=== PATIENT | male | born 1970 | race Caucasian/White ===

== ENCOUNTER 2018-04-15 09:59 | Emergency (ER) | payer OTHER ==
[~2018-04-15] VITALS: Ht 165.1 cm; Wt 80.7 kg
--- NOTE | 2018-04-15 10:52 | ED GI/GU/ABDOMINAL COMPLAINT ---
History of Present Illness General Chief Complaint: Abdominal Pain/Flank Pain Stated Complaint: ABD PAIN, X 3 DAYS. Source: patient, family Exam Limitations: no limitations Vital Signs & Intake/Output Vital Signs & Intake/Output Vital Signs Date Time Temp Pulse Resp B/P B/P Pulse O2 O2 Flow FiO2 Mean Ox Delivery Rate 04/15 1247 97.8 70 20 125/76 100 Room Air 04/15 1020 96.8 73 20 141/95 98 Room Air Allergies Coded Allergies: No Known Allergies (04/15/18) Triage Note: PT TO ED C/O LLQ PAIN X 3 DAYS. STATES IT IS PINCHING IN NATURE, COMES AND GOES. HAD NORMAL BM THIS AM. DENIES N/V/D, DENIES S/S. Triage Nurses Notes Reviewed? yes HPI: Patient presents with intermittent left lower quadrant sharp pain that started 4 days ago. The pain increases with any movement or bending. There is no radiation. At its worst the pain is 7 out of 10. There is no anorexia. There is no nausea vomiting constipation or diarrhea. There is no dysuria or hematuria. There are no fevers or chills. Past History Travel History Traveled to [place] past 21 day No Medical History Any Pertinent Medical History? see below for history Cardiovascular: hypertension Surgical History Surgical History: non-contributory Psychosocial History What is your primary language Hungarian Tobacco Use: Never used ETOH Use: denies use Illicit Drug Use: denies illicit drug use Family History Hx Contributory? No Review of Systems Review of Systems Constitutional: Reports: no symptoms. EENTM: Reports: no symptoms. Respiratory: Reports: no symptoms. Cardiovascular: Reports: no symptoms. GI: Reports: see HPI, abdominal pain. Genitourinary: Reports: no symptoms. Musculoskeletal: Reports: no symptoms. Skin: Reports: no symptoms. Neurological/Psychological: Reports: no symptoms. Hematologic/Endocrine: Reports: no symptoms. Immunologic/Allergic: Reports: no symptoms. All Other Systems: Reviewed and Negative Physical Exam Physical Exam General Appearance: well developed/nourished, alert, awake, mild distress Head: atraumatic, normal appearance Eyes: Bilateral: PERRL, EOMI. Ears, Nose, Throat, Mouth: hearing grossly normal, moist mucous membrane Neck: normal inspection, supple, full range of motion Respiratory: normal breath sounds, chest non-tender, no respiratory distress, lungs clear Cardiovascular: regular rate/rhythm, normal peripheral pulses Gastrointestinal: normal bowel sounds, soft, no organomegaly, tenderness (LLQ), NO REBOUND OR GUARDING Back: normal inspection, normal range of motion Extremities: normal range of motion Neurologic/Psych: no motor/sensory deficits, awake, alert, oriented x 3, normal gait, normal mood/affect Skin: intact, normal color, warm/dry Core Measures ACS in differential dx? No Sepsis Present: No Sepsis Focused Exam Completed? No Progress Differential Diagnosis: diverticulitis, MUSCLE STRAIN Plan of Care: Orders Procedure Date/time Status URINALYSIS 04/15 1006 Complete TROPONIN LEVEL 04/15 1006 Complete LIPASE 04/15 1006 Complete COMPREHENSIVE METABOLIC PANEL 04/15 1006 Complete CBC WITHOUT DIFFERENTIAL 04/15 1006 Complete AMYLASE 04/15 1006 Complete Laboratory Tests 04/15/18 1045: Anion Gap 7, Estimated GFR > 60, BUN/Creatinine Ratio 18.9, Glucose 88, Calcium 9.2, Total Bilirubin 0.6, AST 27, ALT 29, Alkaline Phosphatase 52, Troponin I < 0.01, Total Protein 7.5, Albumin 4.3, Globulin 3.2, Albumin/Globulin Ratio 1.3, Amylase 62, Lipase 109, CBC w Diff NO MAN DIFF REQ, RBC 4.87, MCV 90.4, MCH 29.6 , MCHC 32.7 L, RDW 13.4, MPV 7.4, Gran % 58.6, Lymphocytes % 30.5, Monocytes % 8.1, Eosinophils % 2.3, Basophils % 0.5, Absolute Granulocytes 4.2, Absolute Lymphocytes 2.2, Absolute Monocytes 0.6, Absolute Eosinophils 0.2, Absolute Basophils 0 04/15/18 1031: Urine Color YEL, Urine Clarity CLEAR, Urine pH 6.0, Ur Specific [place] 1.025, Urine Protein NEG, Urine Ketones NEG, Urine Nitrite NEG, Urine Bilirubin NEG, Urine Urobilinogen 0.2, Ur Leukocyte Esterase NEG, Ur Microscopic EXAM NOT REQUIRED, Urine Hemoglobin NEG, Urine Glucose NEG Diagnostic Imaging: Viewed by Me: CT Scan. Discussed w/RAD: CT Scan. Radiology Impression: PATIENT: MEKA TAPIA PRESENT AGE: 47 PATIENT ACCOUNT NO: [id number] : 71 LOCATION: [facility] ORDERING PHYSICIAN: Eliseo Toth MD SERVICE DATE: 04/15/18 EXAM TYPE: CAT - CT ABD & PELVIS W IV CONTRAST EXAMINATION: CT ABDOMEN AND PELVIS WITH CONTRAST CLINICAL INFORMATION: Left lower quadrant pain. Presumptive diagnosis of diverticulitis. COMPARISON: None. TECHNIQUE: Multidetector CT volumetric acquisition of the abdomen and pelvis was performed after the administration of 95 mL of intravenous Optiray 320. The data set was reformatted in the sagittal and coronal planes and reviewed on an independent workstation. DLP: 402.69 mGy-cm. FINDINGS: LOWER CHEST: Minimal dependent atelectasis is seen in the lung bases bilaterally. LIVER, GALLBLADDER, BILIARY TREE: Liver normal size and attenuation. No focal cystic or solid mass or intra-or extrahepatic ductal dilatation. Hepatic and portal veins patent. Gallbladder partially distended and within normal limits. PANCREAS: Normal. No ductal dilatation, mass , or surrounding stranding. SPLEEN: Normal size and appearance. Splenic vein patent. ADRENAL GLANDS AND KIDNEYS: Adrenal glands normal. Kidneys bilaterally symmetric in size and function. No focal mass, hydronephrosis, nephrolithiasis or perinephric stranding. URETERS AND BLADDER: Ureters decompressed and within normal limits. Bladder partially distended and within normal limits. PELVIC ORGANS: Unremarkable. GASTROINTESTINAL TRACT: No significant diverticulosis or diverticulitis is seen. There is some very faint and minimal fat stranding seen anterior to the distal descending and proximal sigmoid colon (series 2, images 58 through 61), possibly related to very subtle omental inflammation or contusion. The underlying colon appears unremarkable. Small and large bowel loops are decompressed. Appendix in right lower quadrant normal. ABDOMINAL WALL: There is a small fat-containing umbilical hernia. LYMPHOVASCULAR STRUCTURES: Abdominal aorta normal in caliber. No periaortic collections. No abdominal or pelvic adenopathy or free fluid collection. BONES: Mild vertebral spondylosis is seen in the lower thoracic and lower lumbar spine. IMPRESSION: 1. Very subtle faint and minimal fat stranding is seen anterior left lower quadrant, anterior to the distal descending and proximal sigmoid colon without underlying bowel abnormality. Findings may signify subtle omental inflammation or contusion. Close clinical correlation is requested. 2. Small fat-containing umbilical hernia. DICTATED BY: Fariba Rivera MD DATE/TIME DICTATED:04/15/181237 TELEPHONE SOLICITOR SUPERVISOR:RYLEE DATE/TIME TRANSCRIBED:08/11/18 / 1238 CONFIDENTIAL, DO NOT COPY WITHOUT APPROPRIATE AUTHORIZATION. <Electronically signed in Other Vendor System> SIGNED BY: Fariba Rivera MD 04/15/18 1302 Initial ED EKG: none Departure Departure Disposition: HOME OR SELF CARE Condition: Stable Clinical Impression Primary Impression: Lower abdominal pain, unspecified Referrals: Nina GALVAN,George Fregoso (PCP/Family) Additional Instructions: RETURN IF SYMPTOMS WORSEN OR FOR ANY CONCERNS Departure Forms: Customer Survey General Discharge Information
[2018-04-15 11:09] LABS: ABSOLUTE BASOPHIL COUNT 0 /CUMM (0.0-0.2); ABSOLUTE EOSINOPHIL COUNT 0.2 /CUMM (0.0-0.7); ABSOLUTE GRANULOCYTE CT 4.2 /CUMM (1.4-6.5); ABSOLUTE LYMPH COUNT 2.2 /CUMM (1.2-3.4); ABSOLUTE MONOCYTE COUNT 0.6 /CUMM (0.10-0.60); BASOPHIL % 0.5 % (0.0-2.0); EOSINOPHIL % 2.3 % (0-5); GRANULOCYTE % 58.6 % (42.2-75.2); MEAN CORPUSCULAR HGB 29.6 PG (27.0-31.0); MEAN CORPUSCULAR HGB CONC 32.7 G/DL (33.0-37.0); MEAN CORPUSCULAR VOLUME 90.4 FL (80.0-94.0); MEAN PLATELET VOLUME 7.4 FL (7.4-10.4); PLATELET COUNT 260 /CUMM (130-400); RBC DISTRIBUTION WIDTH 13.4 % (11.5-14.5); RED BLOOD CELL CT 4.87 /CUMM (4.70-6.10); WHITE BLOOD CELL COUNT 7.2 /CUMM (4.8-10.8)
[2018-04-15 12:47] VITALS: BP 125/76
--- NOTE | 2018-04-15 13:02 | CT SCAN REPORT ---
EXAMINATION: CT ABDOMEN AND PELVIS WITH CONTRAST CLINICAL INFORMATION: Left lower quadrant pain. Presumptive diagnosis of diverticulitis. COMPARISON: None. TECHNIQUE: Multidetector CT volumetric acquisition of the abdomen and pelvis was performed after the administration of 95 mL of intravenous Optiray 320. The data set was reformatted in the sagittal and coronal planes and reviewed on an independent workstation. DLP: 402.69 mGy-cm. FINDINGS: LOWER CHEST: Minimal dependent atelectasis is seen in the lung bases bilaterally. LIVER, GALLBLADDER, BILIARY TREE: Liver normal size and attenuation. No focal cystic or solid mass or intra-or extrahepatic ductal dilatation. Hepatic and portal veins patent. Gallbladder partially distended and within normal limits. PANCREAS: Normal. No ductal dilatation, mass, or surrounding stranding. SPLEEN: Normal size and appearance. Splenic vein patent. ADRENAL GLANDS AND KIDNEYS: Adrenal glands normal. Kidneys bilaterally symmetric in size and function. No focal mass, hydronephrosis, nephrolithiasis or perinephric stranding. URETERS AND BLADDER: Ureters decompressed and within normal limits. Bladder partially distended and within normal limits. PELVIC ORGANS: Unremarkable. GASTROINTESTINAL TRACT: No significant diverticulosis or diverticulitis is seen. There is some very faint and minimal fat stranding seen anterior to the distal descending and proximal sigmoid colon (series 2, images 58 through 61), possibly related to very subtle omental inflammation or contusion. The underlying colon appears unremarkable. Small and large bowel loops are decompressed. Appendix in right lower quadrant normal. ABDOMINAL WALL: There is a small fat-containing umbilical hernia. LYMPHOVASCULAR STRUCTURES: Abdominal aorta normal in caliber. No periaortic collections. No abdominal or pelvic adenopathy or free fluid collection. BONES: Mild vertebral spondylosis is seen in the lower thoracic and lower lumbar spine. IMPRESSION: 1. Very subtle faint and minimal fat stranding is seen anterior left lower quadrant, anterior to the distal descending and proximal sigmoid colon without underlying bowel abnormality. Findings may signify subtle omental inflammation or contusion. Close clinical correlation is requested. 2. Small fat-containing umbilical hernia.
== END 2018-04-15 13:24 ==
LOC: ERH 09:59
PROVIDERS: Emergency Medicine
DX: R10.32 Left lower quadrant pain (principal)
CPT/HCPCS: 74177; 81003; 96374; J1885